=== PATIENT | female | born 1965 | race Caucasian/White ===

== ENCOUNTER 2020-05-12 15:12 | Observation (INO) ==
[2020-05-12] MEDS ORDERED: ONDANSETRON HCL/PF 2 MG/ML VIAL IV ONE ×2 (16:01→19:55)
[2020-05-12] MEDS ORDERED: PANTOPRAZOLE SODIUM 40 MG/100 ML PIGGYBACK IV ONE (16:01)
[2020-05-12] MEDS ORDERED: MORPHINE SULFATE 4 MG/ML SYRG IV ONE ×2 (16:01→17:03)
[2020-05-12 16:18] LABS: Hemoglobin 8.5 gm/dL (12.5-16.0); Mean Cell Volume 84.9 fl (78-100); Mean Corpuscular Hemoglobin 23.3 pg (27-31); Mean Corpuscular Hgb Conc 27.4 g/dl (32-36); Mean Platelet Volume 8.4 fl (8-12.5); Neutrophil # 16.9 K/mm3 (1.3-6.0); Neutrophil % 92.4 % (42-75.0); Platelet Count 410 K/mm3 (150-450); Red Blood Count 3.65 M/mm3 (4.2-5.4); Red Cell Distribution Width 18.1 % (11.5-14.0); White Blood Count 18.3 K/mm3 (4.0-10.5)
[2020-05-12 16:28] LABS: Albumin * 2.8 gm/dl (3.4-5.0); Anion Gap 6.1 mmol/L (6.8-13.8); BUN/Creatinine Ratio 18.6 (9.0-21.6); Bilirubin, Total 0.4 mg/dL (0.0-1.1); Ca. Corrected For Albumin 9.9 mg/dL (8.4-10.2); Calcium * 9.3 mg/dL (7.9-10.9); Carbon Dioxide 34.3 mmol/L (24-32.6); Potassium 4.4 mmol/L (3.4-4.6)
[2020-05-12 16:45] LABS: Urine Appearance Slightly Cloudy (CLEAR); Urine Bacteria TRACE; Urine Bilirubin Negative (NEGATIVE); Urine Blood 5 /ul (NEGATIVE); Urine Color Yellow; Urine Ketone Negative (NEGATIVE); Urine Nitrite Negative (NEGATIVE); Urine Protein Negative (NEGATIVE); Urine RBC 0-5 /hpf (0-5); Urine Urobilinogen Normal (NORMAL); Urine WBC TRACE /hpf (0-5); Urine pH 6.5 pH (5.0-7.0)
[2020-05-12] MEDS ORDERED: DIATRIZOATE MEGLUMINE, SODIUM 30 ML BTL PO ONE (17:02)
--- NOTE | 2020-05-12 18:45 | ERNOTE ---
Abdominal HPI - Narrative Date of Service: 05/12/20 - General Chief Complaint: Abdominal Pain Time Seen by Provider: 05/12/20 15:29 Source: patient Exam Limitations: no limitations - Immun/Allergies/Home Medications Immunizatons: IMMUNIZATION HX Immunizations Up to Date Yes History of Influenza Vaccine No Hx Pneumococcal Vaccination No Allergies/Adverse Reactions: Allergies No Known Allergies Allergy (Unverified 05/12/20 15:33) - History of Present Illness Narrative: Patient presents to the ED for abdominal pain via ambulance. She relates chronic pain, ongoing but worse over the last couple of days and vomiting recurrently today. NO fever. Upper abdominal pain, severe. No acute diarrhea. No blood in stool or vomit. No CP or new SOB (chronic SOB with COPD). nothing seems to make it better or worse. She had wound in her umbilicus that has been extensively cared for at [place] but she did not want to go there because a family member just at that hospital from COVID. Timing: constant Quality: severe Activities at Onset: none Modifying Factors - (Improves): Present: other - nothing Modifying Factors - (Worsens): Present: other - nothing Associated Symptoms: Present: nausea, vomiting. Absent: chest pain, diarrhea- gross blood, fever/chills Prior Abdominal Problems: Absent: recent trauma Prior Treatment: Absent: recently hospitalized, currently on antibiotics Review of Systems - Review of Systems Constitutional: Absent: fever ENT: Absent: sore throat Respiratory: Present: See HPI Cardiology: Absent: chest pain Gastrointestinal/Abdominal: Present: See HPI Genitourinary: Absent: dysuria Neurological: Absent: weakness All Other Systems: All systems neg except as marked Medical History (Last Reviewed 05/12/20 @ 18:41 by Kwesi Stanford MD) COPD (chronic obstructive pulmonary disease) Surgical History: Surgical History (Last Reviewed 05/12/20 @ 18:41 by Kwesi Stanford MD) H/O total knee replacement bilateral knee x2 each History of tonsillectomy History of tonsillectomy History of tonsillectomy and adenoidectomy Ovarian cyst Family History: Family History (Last Reviewed 05/12/20 @ 18:41 by Kwesi Stanford MD) Other No pertinent family history Physical Exam - Physical Exam General Appearance: Present: alert, no apparent distress Head Exam: Present: normal inspection, no evidence of injury Eye Exam: Normal inspection: bilateral, PERRL: bilateral Ears, Nose, Throat: Present: normal ENT inspection Neck: Present: normal inspection, nontender Respiratory: Present: no respiratory distress, no accessory muscle use, other - on her home O2 of 3L/min. No active wheezing Cardiovascular/Chest: Present: regular rate, rhythm, normal peripheral pulses Gastrointestinal/Abdominal: Present: normal bowel sounds, soft, other - Diffuse upper abdominal tenderness to palpation. No masses, no clear peritoneal signs Back Exam: Absent: CVA tenderness (R), CVA tenderness (L) Extremity Exam: Present: normal range of motion Neurological Exam: Present: alert, no motor/sensory deficits Skin Exam: Present: normal color, warm/dry Progress - Results and Orders Patient's Lab Results:: I have reviewed the patient's lab results. - Vital Signs Patient's Vital Signs:: I have reviewed the patient's vital signs. Vital Signs: Vital Signs 05/12/20 15:13 05/12/20 17:19 Temperature 36.4 C Pulse Rate 83 88 Respiratory Rate 19 20 Blood Pressure 163/88 H 130/74 O2 Sat by Pulse Oximetry 94 97 - X-Ray X-Ray #1 X-Ray: abdomen Interpretation: Interp. by me X-ray Comments: I personally reviewed x-ray images as well as official radiology report - CT/Ultrasound CT/Ultrasound Narrative: I reviewed the official radiology report for CT scan abd/pelvis per radiology - Progress/Reassessment Chief Complaint: Abdominal Pain Progress Note-Subjective: 05/12/20 19:56 Patient has pancreatitis. Given repeated doses of Morphine. Needs hospital ization. I discussed the case with Dr Solis who will admit the patient. Patient is agreeable. Departure Clinical Impression: Abdominal pain, Pancreatitis - Departure Disposition: Still a patient Condition: Stable Referrals: Merlin Kirkland DO [Primary Care Provider] -
[2020-05-12] MEDS ORDERED: MORPHINE SULFATE 2 MG/ML DISP.SYRIN IV ONE (19:55)
[2020-05-12] MEDS ORDERED: NORMAL SALINE 1,000 ML IV ONE (19:55)
[2020-05-13] MEDS ORDERED: MORPHINE SULFATE 4 MG/ML SYRG IV PRN (00:14)
[2020-05-13] MEDS ORDERED: PROMETHAZINE HCL 25 MG TABLET PO PRN (00:17)
--- NOTE | 2020-05-13 00:19 | HP ---
Chief Complaint - Chief Complaint Date of Service: 05/13/20 Time of Service: 00:19 Chief Complaint: abdominal pain History of Present Illness: 54-year-old morbidly obese female with history of chronic pain affecting both her back and her abdomen as well as COPD, presented to the hospital for worsening right upper quadrant abdominal pain. Patient states that she has had this pain for last couple of weeks that has changed the last few days. CT scan in the ER showed her to have peripancreatic vibratory changes consistent with pancreatitis but no other acute processes seen. Her lab work showed her to have a white count 18.3, and negative lactic acid and lactate dehydrogenase, normal glucose, normal liver function test. Monty score should have less than 1% mortality from acute pancreatitis. By the sounds of her story that is unlike this is more of a chronic pancreatitis picture and she probably needs a follow with GI. Patient was admitted for pain control for acute pancreatitis (chronic pancreatitis?) Medical History (Last Reviewed 05/12/20 @ 18:41 by Kwesi Stanford MD) COPD (chronic obstructive pulmonary disease) Surgical History: Surgical History (Last Reviewed 05/12/20 @ 18:41 by Kwesi Stanford MD) H/O total knee replacement bilateral knee x2 each History of tonsillectomy History of tonsillectomy History of tonsillectomy and adenoidectomy Ovarian cyst Family History: Family History (Last Reviewed 05/12/20 @ 18:41 by Kwesi Stanford MD) Other No pertinent family history Review Of Systems (GEN) - Review of Systems Generalized/Overall Review: Absent: Weakness, Chills, Fever EENTM: Present: No Symptoms Reported Respiratory: Present: Shortness of Breath. Absent: Cough Cardiac: Absent: Chest Pain, Edema Abdominal: Present: Nausea, Abdominal Pain, Diarrhea. Absent: Vomiting, Melena, Bright blood from rectum Genitourinary: Absent: Burning, Itching, Urgency, Frequency Musculoskeletal: Present: Back Pain, Muscle Pain Neurological: Present: No Symptoms Reported Skin: Present: No Symptoms Reported Endocrine: Present: No Symptoms Reported Immunizations: IMMUNIZATION HX Immunizations Up to Date Yes History of Influenza Vaccine No Hx Pneumococcal Vaccination No Allergies/Adverse Reactions: Allergies Allergy/AdvReac Type Severity Reaction Status Date / Time No Known Allergies Allergy Unverified 05/12/20 15:33 Home Medications: HOME MEDICATIONS Acyclovir [Zovirax] 200 mg PO BID 05/12/20 [Last Taken 05/12/20 06:30] Breo Ellipta 100-25 Mcg INH 1 puff INH BID 05/12/20 [Last Taken 05/12/20 06:30] Celecoxib 200 mg PO DAILY 05/12/20 [Last Taken 05/12/20 06:30] Cyclobenzaprine HCl 10 mg PO DAILY 05/12/20 [Last Taken 05/11/20 22:00] Dextroamp-Amphet ER 10 mg Cap 1 cap DAILY 05/12/20 [Last Taken 05/11/20 14:00] Dextroamp-Amphet ER 30 mg Cap 1 cap PO DAILY 05/12/20 [Last Taken 05/11/20 06 :30] Escitalopram Oxalate 10 mg PO DAILY 05/12/20 [Last Taken 05/11/20 22:30] Esomeprazole Magnesium 40 mg PO BID 05/12/20 [Last Taken 05/12/20 06:30] Oxycontin 30 mg PO TID 05/12/20 [Last Taken 05/12/20 06:30] Pantoprazole Sodium 40 mg PO DAILY 05/12/20 [Last Taken 05/12/20 06:30] Proair Hfa 900 mcg INH BID 05/12/20 [Last Taken 05/11/20] Rosuvastatin Calcium 10 mg PO DAILY 05/12/20 [Last Taken 05/11/20 22:00] Temazepam 30 mg PO HS 05/12/20 [Last Taken 05/11/20 22:00] hydrOXYzine HCL [Atarax] 25 mg PO HS 05/12/20 [Last Taken 05/11/20 22:00] Exam - Exam Vital Signs: Vital Signs - Last Taken Temp 36.7 C 05/12/20 21:39 Pulse 82 05/12/20 21:39 Resp 24 H 05/12/20 21:39 BP 146/73 H 05/12/20 21:39 Pulse Ox 92 L 05/12/20 21:39 Constitutional: Present: Alert, Oriented x3, Mild distress, Morbidly obese ENT Exam: Present: hearing grossly normal Eye Exam: bilateral eye: normal inspection, EOMI Respiratory: Present: decreased breath sounds - due to body habitus. Absent: wheezing Cardiovascular/Chest: Present: normal peripheral pulses, regular rate, rhythm, no murmur Abdomen: Present: Normal bowel sounds, soft, tender. Absent: guarding, rebound tenderness Extremity: Present: lower extremity edema Skin Exam: Present: normal color, warm/dry Appearance: Present: appropriate insight, disheveled Eye contact: Present: cooperative, good eye contact Thoughts: Present: normal thought pattern, normal mood /affect Diagnostic Studies: Abnormal Lab Results 05/12/20 05/12/20 05/12/20 Range/Units 16:06 16:06 16:20 WBC 18.3 H (4.0-10.5) K/mm3 RBC 3.65 L (4.2-5.4) M/mm3 Hgb 8.5 L (12.5-16.0) gm/dL Hct 31.0 L (37.0-47.0) % MCH 23.3 L (27-31) pg MCHC 27.4 L (32-36) g/dl RDW 18.1 H (11.5-14.0) % Immature Gran % (Auto) 0.50 H (0.001-0.429) % Immature Gran # (Auto) 0.10 H (0.000-0.0310) K/mm3 Neutrophils % 92.4 H (42-75.0) % Lymphocytes % 3.9 L (20-51) % Neutrophils # 16.9 H (1.3-6.0) K/mm3 Lymphocytes # 0.72 L (1.5-3.5) k/mm3 Chloride 96 L (97-106) mmol/L Carbon Dioxide 34.3 H (24-32.6) mmol/L Anion Gap 6.1 L (6.8-13.8) mmol/L Random Glucose 122 H (70-110) mg/dL ALT 11 L (19-67) U/L Albumin 2.8 L (3.4-5.0) gm/dl Lipase 949 H (73-393) U/L Urine Blood 5 H (NEGATIVE) /ul Urine WBC Trace H (0-5) /hpf Laboratory Results WBC 18.3 K/mm3 (4.0-10.5) H 05/12/20 16:06 RBC 3.65 M/mm3 (4.2-5.4) L 05/12/20 16:06 Hgb 8.5 gm/dL (12.5-16.0) L 05/12/20 16:06 Hct 31.0 % (37.0-47.0) L 05/12/20 16:06 MCV 84.9 fl (78-100) 05/12/20 16:06 MCH 23.3 pg (27-31) L 05/12/20 16:06 MCHC 27.4 g/dl (32-36) L 05/12/20 16:06 RDW 18.1 % (11.5-14.0) H 05/12/20 16:06 Plt Count 410 K/mm3 (150-450) 05/12/20 16:06 MPV 8.4 fl (8-12.5) 05/12/20 16:06 Immature Gran % (Auto) 0.50 % (0.001-0.429) H 05/12/20 16:06 Immature Gran # (Auto) 0.10 K/mm3 (0.000-0.0310) H 05/12/20 16:06 Neutrophils % 92.4 % (42-75.0) H 05/12/20 16:06 Lymphocytes % 3.9 % (20-51) L 05/12/20 16:06 Monocytes % 3.0 % (0.0-9) 05/12/20 16:06 Eosinophils % 0.1 % (0.0-3.0) 05/12/20 16:06 Basophils % 0.1 % (0.0-1.0) 05/12/20 16:06 Nucleated RBC % 0.0 k/mm3 (0-1) 05/12/20 16:06 Neutrophils # 16.9 K/mm3 (1.3-6.0) H 05/12/20 16:06 Lymphocytes # 0.72 k/mm3 (1.5-3.5) L 05/12/20 16:06 Monocytes # 0.6 k/mm3 (0.0-1.0) 05/12/20 16:06 Eosinophils # 0.0 k/mm3 (0.0-0.7) 05/12/20 16:06 Absolute Basophils 0.0 k/mm3 (0.0-0.1) 05/12/20 16:06 Sodium 132 mmol/L (132-142) 05/12/20 16:06 Plasma Sodium 132 mmol/L (130-142) 05/12/20 16:06 Potassium 4.4 mmol/L (3.4-4.6) 05/12/20 16:06 Chloride 96 mmol/L (97-106) L 05/12/20 16:06 Carbon Dioxide 34.3 mmol/L (24-32.6) H 05/12/20 16:06 Anion Gap 6.1 mmol/L (6.8-13.8) L 05/12/20 16:06 BUN 13 mg/dL (3-23) 05/12/20 16:06 Creatinine 0.70 mg/dL (0.4-1.4) 05/12/20 16:06 Est GFR (Non-Af Amer) 93 mL/min (60-130) 05/12/20 16:06 BUN/Creatinine Ratio 18.6 (9.0-21.6) 05/12/20 16:06 Random Glucose 122 mg/dL (70-110) H 05/12/20 16:06 Lactic Acid, Venous 1.1 mmol/L (0.4-2.0) 05/12/20 16:06 Calcium 9.3 mg/dL (7.9-10.9) 05/12/20 16:06 Calcium Adj for Albumin 9.9 mg/dL (8.4-10.2) 05/12/20 16:06 Total Bilirubin 0.4 mg/dL (0.0-1.1) 05/12/20 16:06 AST 11 U/L (0-48) 05/12/20 16:06 ALT 11 U/L (19-67) L 05/12/20 16:06 Alkaline Phosphatase 132 U/L (50-170) 05/12/20 16:06 Lactate Dehydrogenase 185 U/L (81-234) 05/12/20 16:06 Total Protein 7.0 gm/dL (6.2-8.2) 05/12/20 16:06 Albumin 2.8 gm/dl (3.4-5.0) L 05/12/20 16:06 Lipase 949 U/L (73-393) H 05/12/20 16:06 Serum HCG, Qual Negative (NEGATIVE) 05/12/20 16:06 Urine Color Yellow 05/12/20 16:20 Urine Appearance Slightly cloudy (CLEAR) 05/12/20 16:20 Urine pH 6.5 pH (5.0-7.0) 05/12/20 16:20 Ur Specific [place] 1.010 SP.GR. (1.005-1.010) 05/12/20 16:20 Urine Protein Negative mg/dL (NEGATIVE) 05/12/20 16:20 Urine Glucose (UA) Negative mg/dL (NEGATIVE) 05/12/20 16:20 Urine Ketones Negative mg/dL (NEGATIVE) 05/12/20 16:20 Urine Blood 5 /ul (NEGATIVE) H 05/12/20 16:20 Urine Nitrate Negative (NEGATIVE) 05/12/20 16:20 Urine Bilirubin Negative mg/dl (NEGATIVE) 05/12/20 16:20 Urine Urobilinogen Normal EU/dl (NORMAL) 05/12/20 16:20 Ur Leukocyte Esterase Negative /ul (NEGATIVE) 05/12/20 16:20 Urine RBC 0-5 /hpf (0-5) 05/12/20 16:20 Urine WBC Trace /hpf (0-5) H 05/12/20 16:20 Ur Epithelial Cells 0-5 /hpf (0-5) 05/12/20 16:20 Urine Bacteria Trace (NONE) 05/12/20 16:20 Urine Culture Comments No culture indicated 05/12/20 16:20 Assessment/Plan - Narrative Narrative: 54-year-old female placed in observation for acute pancreatitis (chronic pancreatitis). We do not have outside records and she is not a great historian. She does state that this abdominal pain is been going on for months with recent worsening last couple weeks. Patient's lab work consistent with pancreatitis. White count elevated but rest of her [employer] criteria negative. Low risk for mortality from this. Patient made n.p.o. we will allow her ice chips. We will start to advance her diet tomorrow if she starts to feel better. Morphine ordered for pain control. Hydralazine ordered for hypertension greater than 160. Rest of her meds are being held currently due to n.p.o. status. Will restart them when she is able to advance her diet. Will repeat CBC in the morning. Nurse to call questions or concerns. SCDs to be worn for DVT pr ophylaxis. Nurse to call with questions or concerns. - Assessment/Plan (1) Pancreatitis Problem: Acute (2) Abdominal pain Problem: Acute (3) COPD (chronic obstructive pulmonary disease) Problem: Acute (4) Chronic back pain Problem: Acute (5) Chronic back pain Problem: Acute
[2020-05-13] MEDS: NORMAL SALINE 1,000 ML IV SCH ×4 (00:59→22:49)
[2020-05-13] MEDS: ALBUTEROL SULFATE 2.5 MG/0.5 ML VIAL.NEB IH SCH ×2 (08:44→18:31)
[2020-05-13] MEDS ORDERED: FLU VACC QS2020-21(6MOS UP)/PF 60 MCG/0.5 ML SYRINGE IM ONE (09:00)
[2020-05-13] MEDS: FLUTICASONE PROPION/SALMETEROL 14 PUFF DISK.W.DEV IH SCH ×2 (09:24→20:47)
[2020-05-13] MEDS ORDERED: hydrALAZINE HCL 20 MG/ML VIAL IV PRN (10:00)
[2020-05-13 10:20] LABS: Hematocrit 34.8 % (37.0-47.0); Hemoglobin 9.3 gm/dL (12.5-16.0); Mean Corpuscular Hemoglobin 23.3 pg (27-31); Mean Corpuscular Hgb Conc 26.7 g/dl (32-36); Mean Platelet Volume 8.7 fl (8-12.5); Neutrophil # 14.6 K/mm3 (1.3-6.0); Neutrophil % 92.1 % (42-75.0); Platelet Count 405 K/mm3 (150-450); Red Cell Distribution Width 18.5 % (11.5-14.0); White Blood Count 15.9 K/mm3 (4.0-10.5)
[2020-05-13] MEDS: MORPHINE SULFATE 4 MG/ML SYRG IV PRN ×2 (14:04→20:47)
[2020-05-14] MEDS: MORPHINE SULFATE 4 MG/ML SYRG IV PRN ×2 (00:56→06:55)
[2020-05-14] MEDS ORDERED: DIPHENOXYLATE HCL/ATROP SULF 2.5 MG TABLET PO ONE (01:16)
[2020-05-14] MEDS: NORMAL SALINE 1,000 ML IV SCH (05:39)
[2020-05-14 08:49] LABS: Hematocrit 28.6 % (37.0-47.0); Mean Cell Volume 86.4 fl (78-100); Mean Corpuscular Hemoglobin 23.3 pg (27-31); Mean Corpuscular Hgb Conc 26.9 g/dl (32-36); Mean Platelet Volume 8.6 fl (8-12.5); Neutrophil # 14.6 K/mm3 (1.3-6.0); Neutrophil % 91.1 % (42-75.0); Platelet Count 399 K/mm3 (150-450); Red Blood Count 3.31 M/mm3 (4.2-5.4); Red Cell Distribution Width 18.5 % (11.5-14.0)
[2020-05-14 09:11] LABS: Hemoglobin 7.7 gm/dL (12.5-16.0)
[2020-05-14] MEDS ORDERED: NORMAL SALINE 1,000 ML IV PRN (09:15)
[2020-05-14] MEDS ORDERED: ESCITALOPRAM OXALATE 10 MG TAB PO SCH (09:15)
[2020-05-14] MEDS ORDERED: CELECOXIB 100 MG CAPSULE PO SCH (09:15)
[2020-05-14] MEDS ORDERED: CLINDAMYCIN HCL 150 MG CAPSULE PO SCH (09:30)
--- NOTE | 2020-05-14 09:41 | DS ---
(1) Pancreatitis Problem: Suspected Qualifiers: Chronicity: chronic Pancreatitis type: idiopathic Qualified Code(s): K86.1 - Other chronic pancreatitis (2) Abdominal pain Problem: Chronic (3) COPD (chronic obstructive pulmonary disease) Problem: Chronic (4) Chronic back pain Problem: Chronic Date of Discharge:: 05/14/20 Hospital Course: 54-year-old female who was admitted to the hospital for presumptive acute pancreatitis but after talking with the patient this is been going on for months. She is chronic comes and goes. She is currently seen her physician for this, recommend her follow-up with GI as well. Upon discharge patient mentioned in abdominal infection that she has been dealing with for months also. This was a first time this was mentioned to me. She states that she has a tract from her bellybutton up into her abdominal cavity which she is seeing wound care for. It recently has started to have discharge and smell. Upon examination there was some clear serosanguineous fluid that did have an unpleasant smell. She is current not on any antibiotics but would benefit from this likely due to this chronic abdominal/skin infection. Will start on clindamycin prior to discharge and since been to her pharmacy which she will continue until she follows up with her PCP. Advised her to do so in regards to her chronic pancreatitis as well. Her vital signs been stable she been afebrile. She still has pain but it is more of a chronic nature from her low back which she has been ongoing for "ever". Patient from an acute standpoint is stable and can be discharged home. No changes to her chronic medicines. We will send in antibiotics to her pharmacy. Patient also anemic upon admission at 8.5, was 7.7 upon discharge. Was 9.3 yesterday. I think today's value is more delusional from her IV fluids. She is tolerating p.o. well though and so no concerns with her going home and being able to eat and drink. Advised her to follow-up with her PCP again in regards to her hemoglobin though I also think this is a chronic issue for her. She is not actively bleeding. Patient was in agreement the treatment plan. Procedures Performed: none Results and Findings: Lab Pending Results 05/12/20 16:06: WBC 18.3 H, RBC 3.65 L, Hgb 8.5 L, Hct 31.0 L, MCV 84.9, MCH 23.3 L, MCHC 27.4 L, RDW 18.1 H, Plt Count 410, MPV 8.4, Immature Gran % (Auto) 0.50 H, Immature Gran # (Auto) 0.10 H, Neutrophils % 92.4 H, Lymphocytes % 3.9 L, Monocytes % 3.0, Eosinophils % 0.1, Basophils % 0.1, Nucleated RBC % 0.0, Neutrophils # 16.9 H, Lymphocytes # 0.72 L, Monocytes # 0.6, Eosinophils # 0.0, Absolute Basophils 0.0 05/12/20 16:06: Sodium 132, Plasma Sodium 132, Potassium 4.4, Chloride 96 L, Carbon Dioxide 34.3 H, Anion Gap 6.1 L, BUN 13, Creatinine 0.70, Est GFR (Non-Af Amer) 93, BUN/Creatinine Ratio 18.6, Random Glucose 122 H, Calcium 9.3, Calcium Adj for Albumin 9.9, Total Bilirubin 0.4, AST 11, ALT 11 L, Alkaline Phosphatase 132, Total Protein 7.0, Albumin 2.8 L, Lipase 949 H 05/12/20 16:06: Serum HCG, Qual Negative 05/12/20 16:06: Lactate Dehydrogenase 185 05/12/20 16:06: Lactic Acid, Venous 1.1 05/12/20 16:20: Urine Color Yellow, Urine Appearance Slightly cloudy, Urine pH 6.5, Ur Specific [place] 1.010, Urine Protein Negative, Urine Glucose (UA) Nega tive, Urine Ketones Negative, Urine Blood 5 H, Urine Nitrate Negative, Urine Bilirubin Negative, Urine Urobilinogen Normal, Ur Leukocyte Esterase Negative, Urine RBC 0-5, Urine WBC Trace H, Ur Epithelial Cells 0-5, Urine Bacteria Trace, Urine Culture Comments No culture indicated 05/13/20 10:17: WBC 15.9 H, RBC 4.00 L, Hgb 9.3 L, Hct 34.8 L, MCV 87.0, MCH 23.3 L, MCHC 26.7 L, RDW 18.5 H, Plt Count 405, MPV 8.7, Immature Gran % (Auto) 0.40, Immature Gran # (Auto) 0.06 H, Neutrophils % 92.1 H, Lymphocytes % 3.7 L, Monocytes % 3.5, Eosinophils % 0.2, Basophils % 0.1, Nucleated RBC % 0.0, Neutrophils # 14.6 H, Lymphocytes # 0.58 L, Monocytes # 0.6, Eosinophils # 0.0, Absolute Basophils 0.0 05/14/20 08:42: WBC 16.0 H, RBC 3.31 L, Hgb 7.7 L*, Hct 28.6 L, MCV 86.4, MCH 23.3 L, MCHC 26.9 L, RDW 18.5 H, Plt Count 399, MPV 8.6, Immature Gran % (Auto) 0.40, Immature Gran # (Auto) 0.06 H, Neutrophils % 91.1 H, Lymphocytes % 4.9 L, Monocytes % 3.2, Eosinophils % 0.3, Basophils % 0.1, Nucleated RBC % 0.0, Neutrophils # 14.6 H, Lymphocytes # 0.78 L, Monocytes # 0.5, Eosinophils # 0.1, Absolute Basophils 0.0 Discharge Location: Home Disposition: Home self-care Condition: Stable Discharge Activity: Activity as tolerated Discharge Diet: Low fat/chol Referrals: Merlin Kirkland DO [Primary Care Provider] - One Week Prescriptions (Any new or edited meds): Clindamycin HCl [Cleocin HCl] 300 mg PO TID #30 cap Transmission Status: Pending to [facility] Complete Home Medications List: Complete Home Medication List: Acyclovir [Zovirax] 200 mg PO BID 05/12/20 Breo Ellipta 100-25 Mcg INH 1 puff INH BID 05/12/20 Celecoxib 200 mg PO DAILY 05/12/20 Cyclobenzaprine HCl 10 mg PO DAILY 05/12/20 Dextroamp-Amphet ER 10 mg Cap 1 cap DAILY 05/12/20 Dextroamp-Amphet ER 30 mg Cap 1 cap PO DAILY 05/12/20 Escitalopram Oxalate 10 mg PO DAILY 05/12/20 Esomeprazole Magnesium 40 mg PO BID 05/12/20 Oxycontin 30 mg PO TID 05/12/20 Pantoprazole Sodium 40 mg PO DAILY 05/12/20 Proair Hfa 900 mcg INH BID 05/12/20 Rosuvastatin Calcium 10 mg PO DAILY 05/12/20 Temazepam 30 mg PO HS 05/12/20 hydrOXYzine HCL [Atarax] 25 mg PO HS 05/12/20 Clindamycin HCl [Cleocin HCl] 300 mg PO TID #30 cap 05/14/20
[2020-05-14] MEDS: FLUTICASONE PROPION/SALMETEROL 14 PUFF DISK.W.DEV IH SCH (09:51)
[2020-05-14] MEDS: ALBUTEROL SULFATE 2.5 MG/0.5 ML VIAL.NEB IH SCH (10:14)
[2020-05-14 13:00] VITALS: BP 146/67
[2020-05-15] MEDS ORDERED: PANTOPRAZOLE SODIUM 40 MG TABLET.EC PO SCH (07:00)
== END 2020-05-14 13:29 | disposition home or self-care (01) ==
LOC: MS 15:12 → ER 15:12 → MS 21:20
PROVIDERS: ADMIT Family Medicine; ATTEND Family Medicine